=== PATIENT | female | born 1990 | race African-American/Black ===

== ENCOUNTER 2018-11-25 09:07 | Emergency (ER) | payer OTHER ==
[~2018-11-25] VITALS: Ht 154.9 cm; Wt 81.6 kg
[2018-11-25 11:55] VITALS: BP 129/77; TEMP 99.3
== END 2018-11-25 11:55 | disposition home or self-care (01) ==
LOC: ED 09:07
DX: J02.0 Streptococcal pharyngitis (principal)
CPT/HCPCS: 87502; 87651; 99283

== ENCOUNTER 2021-02-07 11:39 | Emergency (ER) | payer OTHER ==
[~2021-02-07] VITALS: Ht 154.9 cm; Wt 89.8 kg
[2021-02-07 11:45] VITALS: TEMP 97
[2021-02-07 12:09] LABS: PLATELET COUNT 339 K/uL (152-353)
[2021-02-07 12:16] LABS: POTASSIUM 3.5 mmol/L (3.6-5.2); SODIUM 138 mmol/L (136-145)
[2021-02-07 12:45] VITALS: BP 128/68
== END 2021-02-07 13:03 | disposition home or self-care (01) ==
LOC: ED 11:39
PROVIDERS: Hospitalist
DX: K21.9 Gastro-esophageal reflux disease without esophagitis (principal); R07.89 Other chest pain; N39.0 Urinary tract infection, site not specified
CPT/HCPCS: 80053; 81000; 81025; 82550; 83690; 83880; 84484; 85027; 85610; 85730; 87086; 87088; 93005; 99283

== ENCOUNTER 2021-09-15 07:17 | Emergency (ER) | payer OTHER ==
[~2021-09-15] VITALS: Ht 154.9 cm; Wt 89.8 kg
[2021-09-15 07:28] VITALS: TEMP 98.3
[2021-09-15 08:42] VITALS: BP 120/76
== END 2021-09-15 08:40 | disposition home or self-care (01) ==
LOC: ED 07:17
DX: J06.9 Acute upper respiratory infection, unspecified (principal); J02.0 Streptococcal pharyngitis; Z20.822 Contact with and (suspected) exposure to COVID-19
CPT/HCPCS: 87502; 87635; 87651; 96372; 99283; J0696; J1100; U0003